=== PATIENT | female | born 1945 | race Caucasian/White ===

== ENCOUNTER 2023-02-21 17:33 | Inpatient (IN) | payer MEDICARE, MEDICAID ==
[~2023-02-21] VITALS: Ht 170.2 cm; Wt 68.2 kg
[~2023-02-21 17:33] MED LIST: AMLO2.5T45 PO; AMLO5TAB4 PO; ASPI-1406 PO; ASPI-867 PO; CARI350T28; CEPH-568; CEPH-569 PO; CEPH500T PO; ESOM40SU PO; FURO40SO PO; HYDR-4009 PO; HYDR25TA PO; LISI-186; LISI20TA31 PO; LISI40TA13 PO; METO-539 PO; PROC-1 PO
[2023-02-21] MEDS ORDERED: VANCOMYCIN 1G PREMIX 200 ML IV ONE (18:45)
[2023-02-21] MEDS ORDERED: SODIUM CHLORIDE 0.9% 1000ML BAG (SEPSIS BOLUS) IV ONE (18:45)
[2023-02-21 19:10] LABS: BASOPHILS % 0.6 % (0.0-2.0); HEMATOCRIT. 35.6 % (36.0-48.0); HEMOGLOBIN. 11.5 g/dL (12.0-16.0); LYMPHOCYTES % 12.8 % (20.0-50.0); MEAN CORPUSCULAR HEMOGLOBIN 29.9 pg (28.0-32.0); MEAN CORPUSCULAR VOLUME 92.7 fL (81.0-99.0); MEAN PLATELET VOLUME 8.7 fl (7.4-10.4); MONOCYTES % 8.5 % (2.0-8.0); NEUTROPHILS % 77.1 % (40.0-76.0); PLATELET 262 x1000/uL (130-400); RED BLOOD CELL COUNT 3.84 mill/uL (4.2-5.4); RED CELL DISTRIBUTION WIDTH 17.7 % (11.6-14.6)
[2023-02-21 19:11] LABS: CHLORIDE 110 mEq/L (98-107)
[2023-02-21 19:33] LABS: INR 0.9; PROTHROMBIN TIME 10.1 sec (9.6-11.0)
[2023-02-21] MEDS ORDERED: ONDANSETRON HCL 4MG/2ML INJ IV ONE (20:00)
[2023-02-21] MEDS ORDERED: MORPHINE SULFATE 2 MG/ML CPJ (NOT FOR IM USE) IV ONE ×2 (20:00→22:30)
[2023-02-21 20:05] LABS: CLARITY URINE CLEAR (CLEAR); COLOR URINE YELLOW (YELLOW); KETONES URINE NEGATIVE (NEGATIVE); LEUKOCYTE ESTERASE URINE NEGATIVE (NEGATIVE); NITRITE URINE NEGATIVE (NEGATIVE); OCCULT BLOOD URINE NEGATIVE (NEGATIVE); PROTEIN URINE 3+ (NEGATIVE); SPECIFIC GRAVITY URINE 1.014 (1.005-1.030); UROBILINOGEN URINE 0.2 E.U./dL (0.2-1.0)
[2023-02-21] MEDS ORDERED: MORPHINE SULFATE 2 MG/ML CPJ (NOT FOR IM USE) IV PRN (21:45)
[2023-02-21] MEDS ORDERED: ONDANSETRON HCL 4MG/2ML INJ IV PRN (21:45)
[2023-02-21] MEDS ORDERED: ACETAMINOPHEN 650MG SUPP PR PRN ×2 (21:45)
[2023-02-21] MEDS ORDERED: CLONIDINE 0.1MG TABLET PO PRN (21:45)
[2023-02-21] MEDS ORDERED: FUROSEMIDE 40MG/4ML VIAL IV ONE (21:45)
[2023-02-21] MEDS ORDERED: HYDROCODONE/ACETAMINOPHEN 5/325MG TABLET PO PRN (21:45)
[2023-02-21] MEDS ORDERED: IPRATROPIUM/ALBUTEROL 0.5-3(2.5)MG/3ML NEB HHN PRN (21:45)
[2023-02-21] MEDS ORDERED: DEXTROSE 50% WATER 50ML SYRINGE IV PRN (23:15)
[2023-02-21] MEDS ORDERED: FUROSEMIDE 40MG/4ML VIAL IV NR (23:45)
[2023-02-22 00:19] LABS: *AMPHETAMINES SCREEN URINE NEGATIVE (NEGATIVE); *BARBITURATES SCREEN URINE NEGATIVE (NEGATIVE); *BENZODIAZEPINES SCREEN URINE NEGATIVE (NEGATIVE); *COCAINE SCREEN URINE NEGATIVE (NEGATIVE); CANNABINOID URINE SCREEN NEGATIVE (NEGATIVE); METHADONE URINE SCREEN NEGATIVE (NEGATIVE); OPIATES URINE SCREEN PRESUMTIVE POSITIVE (NEGATIVE); PHENCYCLIDINE URINE SCREEN NEGATIVE (NEGATIVE)
[2023-02-22 00:22] LABS: D-DIMER 1.12 mg/L FEU (<0.50); PROTHROMBIN TIME 10.3 sec (9.6-11.0)
[2023-02-22 00:43] LABS: FERRITIN 23 ng/mL (10-291)
[2023-02-22] MEDS ORDERED: KETOROLAC 15MG/ML VIAL IV NR (00:45)
[2023-02-22 00:46] LABS: VITAMIN B12 SERUM 974 pg/mL (211-911)
[2023-02-22] MEDS ORDERED: DEXTROSE 50% WATER 50ML SYRINGE IV PRN (02:30)
[2023-02-22] MEDS: INSULIN LISPRO 100 UNITS/ML SUBCUT SCH ×8 (02:30→21:25)
[2023-02-22] MEDS ORDERED: HYDROMORPHONE HCL/PF 2MG/ML CPJ IV NR (03:15)
[2023-02-22 05:14] LABS: BASOPHILS % 0.6 % (0.0-2.0); EOSINOPHILS % 0.4 % (0.0-5.0); HEMATOCRIT. 29.6 % (36.0-48.0); HEMOGLOBIN. 9.7 g/dL (12.0-16.0); LYMPHOCYTES % 16.5 % (20.0-50.0); MEAN CORPUSCULAR VOLUME 91.6 fL (81.0-99.0); MONOCYTES % 11.9 % (2.0-8.0); NEUTROPHILS % 70.6 % (40.0-76.0); PLATELET 208 x1000/uL (130-400); RED BLOOD CELL COUNT 3.24 mill/uL (4.2-5.4); RED CELL DISTRIBUTION WIDTH 17.6 % (11.6-14.6)
[2023-02-22 05:35] LABS: CHLORIDE 114 mEq/L (98-107)
[2023-02-22 06:03] LABS: HDL CHOLESTEROL 70 mg/dL (40-59); LDL CHOLESTEROL 38 mg/dL (5-100); T4 FREE 0.99 ng/dL (0.76-1.46)
[2023-02-22] MEDS: BLOOD SUGAR DIAGNOSTIC STRIP TEST SCH ×8 (06:30→21:25)
[2023-02-22] MEDS ORDERED: HYDRALAZINE 20MG/ML VIAL IV PRN (08:15)
[2023-02-22] MEDS ORDERED: PANTOPRAZOLE SODIUM 40 MG/VIAL IV SCH (09:00)
[2023-02-22] MEDS: LORAZEPAM 2MG/ML CPJ IV PRN ×3 (09:27→21:33)
[2023-02-22 10:30] VITALS: BP 147/69
[2023-02-22] MEDS: ASPIRIN 81MG EC TABLET PO SCH (11:27)
[2023-02-22 11:29] VITALS: BP 152/71
[2023-02-22] MEDS: METOPROLOL TARTRATE 25MG TABLET PO SCH ×2 (11:29→19:02)
[2023-02-22] MEDS: AMLODIPINE 5MG TABLET PO SCH (11:30)
[2023-02-22 12:23] VITALS: BP 147/69
[2023-02-22] MEDS ORDERED: MORPHINE SULFATE 2 MG/ML CPJ (NOT FOR IM USE) IV NR (13:45)
[2023-02-22] MEDS ORDERED: FUROSEMIDE 40MG/4ML VIAL IVP NR (13:45)
[2023-02-22] MEDS: ENOXAPARIN 40MG/0.4ML SYR SUBCUT SCH (14:12)
[2023-02-22 16:00] VITALS: BP 138/91
[2023-02-22] MEDS ORDERED: NALOXONE HCL 0.4MG/ML VIAL IV PRN (17:30)
[2023-02-22] MEDS ORDERED: VANCOMYCIN 750MG PREMIX 150 ML IV SCH (18:00)
[2023-02-22] MEDS: HYDROMORPHONE HCL/PF 2MG/ML CPJ IV PRN (19:04)
[2023-02-22 20:00] VITALS: BP 161/97
[2023-02-22] MEDS: INSULIN GLARGINE 100 UNITS/ML SUBCUT SCH (21:56)
[2023-02-23] VITALS: BP 139/71
[2023-02-23 04:00] VITALS: BP 166/72
[2023-02-23] MEDS: BLOOD SUGAR DIAGNOSTIC STRIP TEST SCH ×8 (06:49→20:07)
[2023-02-23] MEDS: INSULIN LISPRO 100 UNITS/ML SUBCUT SCH ×7 (07:10→20:25)
[2023-02-23] MEDS ORDERED: LIDOCAINE HCL 1% 10 MG/ML 10ML VIAL ONE (07:14)
[2023-02-23 07:50] VITALS: BP 131/69
[2023-02-23] MEDS: LORAZEPAM 2MG/ML CPJ IV PRN (08:27)
[2023-02-23] MEDS: METOPROLOL TARTRATE 25MG TABLET PO SCH ×2 (08:28→18:16)
[2023-02-23] MEDS: FUROSEMIDE 40MG/4ML VIAL IVP SCH (08:28)
[2023-02-23] MEDS: ASPIRIN 81MG EC TABLET PO SCH (08:28)
[2023-02-23] MEDS: AMLODIPINE 5MG TABLET PO SCH (08:29)
[2023-02-23] MEDS: FAMOTIDINE 20MG/2ML VIAL IV SCH (08:47)
[2023-02-23 12:00] VITALS: BP 154/83
[2023-02-23] MEDS: ENOXAPARIN 40MG/0.4ML SYR SUBCUT SCH (13:17)
[2023-02-23 16:00] VITALS: BP 145/77
[2023-02-23] MEDS ORDERED: VANCOMYCIN 1G PREMIX 200 ML IV SCH (17:00)
[2023-02-23] MEDS: DEXT 5%/0.9% NACL 1,000 ML IV SCH (17:08)
[2023-02-23 17:20] LABS: BASOPHILS % 0.5 % (0.0-2.0); EOSINOPHILS % 0.7 % (0.0-5.0); HEMATOCRIT. 33.8 % (36.0-48.0); HEMOGLOBIN. 11.3 g/dL (12.0-16.0); LYMPHOCYTES % 18.1 % (20.0-50.0); MEAN CORPUSCULAR HEMOGLOBIN 30.4 pg (28.0-32.0); MEAN CORPUSCULAR VOLUME 90.8 fL (81.0-99.0); MEAN PLATELET VOLUME 7.6 fl (7.4-10.4); MONOCYTES % 12.5 % (2.0-8.0); NEUTROPHILS % 68.2 % (40.0-76.0); PLATELET 247 x1000/uL (130-400); RED BLOOD CELL COUNT 3.72 mill/uL (4.2-5.4); RED CELL DISTRIBUTION WIDTH 17.7 % (11.6-14.6)
[2023-02-23] MEDS: THIAMINE HCL 100MG TABLET PO SCH (18:16)
[2023-02-23] MEDS: HYDROMORPHONE HCL/PF 2MG/ML CPJ IV PRN (18:51)
[2023-02-23] MEDS ORDERED: MAGNESIUM 2 G PREMIX 50 ML IV NR (19:00)
[2023-02-23 20:00] VITALS: BP 148/60
[2023-02-23] MEDS ORDERED: *PATIENT'S OWN MEDICATION STORAGE XX SCH (22:45)
[2023-02-23] MEDS: INSULIN GLARGINE 100 UNITS/ML SUBCUT SCH (23:58)
[2023-02-24] VITALS: BP 138/66
[2023-02-24] MEDS: HYDROCODONE/ACETAMINOPHEN 10/325MG TABLET PO PRN ×2 (00:03→11:56)
[2023-02-24 04:00] VITALS: BP 146/70
[2023-02-24] MEDS: HYDROMORPHONE HCL/PF 2MG/ML CPJ IV PRN ×2 (05:00→13:53)
[2023-02-24] MEDS: DEXT 5%/0.9% NACL 1,000 ML IV SCH (05:05)
[2023-02-24] MEDS: BLOOD SUGAR DIAGNOSTIC STRIP TEST SCH (05:54)
[2023-02-24] MEDS: INSULIN LISPRO 100 UNITS/ML SUBCUT SCH ×2 (06:17→13:36)
[2023-02-24 07:43] LABS: BASOPHILS % 0.3 % (0.0-2.0); HEMATOCRIT. 33.1 % (36.0-48.0); HEMOGLOBIN. 11.1 g/dL (12.0-16.0); LYMPHOCYTES % 27.5 % (20.0-50.0); MEAN CORPUSCULAR HEMOGLOBIN 30.5 pg (28.0-32.0); MEAN CORPUSCULAR VOLUME 90.7 fL (81.0-99.0); MEAN PLATELET VOLUME 8.2 fl (7.4-10.4); MONOCYTES % 12.5 % (2.0-8.0); NEUTROPHILS % 56.7 % (40.0-76.0); PLATELET 234 x1000/uL (130-400); RED BLOOD CELL COUNT 3.64 mill/uL (4.2-5.4); RED CELL DISTRIBUTION WIDTH 18.1 % (11.6-14.6)
[2023-02-24 07:48] LABS: PHOSPHORUS 3.4 mg/dL (2.5-4.9)
[2023-02-24 08:00] VITALS: BP 127/81
[2023-02-24] MEDS: ASPIRIN 81MG EC TABLET PO SCH (08:56)
[2023-02-24] MEDS: AMLODIPINE 5MG TABLET PO SCH ×2 (08:56→09:00)
[2023-02-24] MEDS: THIAMINE HCL 100MG TABLET PO SCH (08:56)
[2023-02-24] MEDS: FUROSEMIDE 40MG/4ML VIAL IVP SCH ×2 (08:57→09:00)
[2023-02-24] MEDS: METOPROLOL TARTRATE 25MG TABLET PO SCH (08:57)
[2023-02-24] MEDS: FAMOTIDINE 20MG/2ML VIAL IV SCH ×2 (08:57→09:00)
[2023-02-24] MEDS ORDERED: METO25TA6 PO (10:42)
[2023-02-24] MEDS ORDERED: FURO80TA87 PO (10:42)
[2023-02-24 12:00] VITALS: BP 106/55
[2023-02-24 13:24] VITALS: BP 106/55
[2023-02-24 13:53] VITALS: BP 106/55
== END 2023-02-24 14:05 | disposition home health service (06) | DRG 91 ==
LOC: ER 17:45 → MICUSO 21:39 → EDBEDREQ 21:51 → EDBEDREQTM 21:51 → 8WST 02-22 10:05
PROVIDERS: ADMIT Internal Medicine; ATTEND Internal Medicine
PROC: 4A00X4Z Measurement of Central Nervous Electrical Activity, External Approach (ICD-10-PCS; principal; 2023-02-23)
PROC: 02HV33Z Insertion of Infusion Device into Superior Vena Cava, Percutaneous Approach (ICD-10-PCS; 2023-02-23)
PROC: B548ZZA Ultrasonography of Superior Vena Cava, Guidance (ICD-10-PCS; 2023-02-23)
DX: G92.8 Other toxic encephalopathy (principal); I21.A1 Myocardial infarction type 2; I50.31 Acute diastolic (congestive) heart failure; F02.83 Dementia in other diseases classified elsewhere, unspecified severity, with mood disturbance; N17.9 Acute kidney failure, unspecified; R47.01 Aphasia; I11.0 Hypertensive heart disease with heart failure; K43.9 Ventral hernia without obstruction or gangrene; F32.A Depression, unspecified; D63.8 Anemia in other chronic diseases classified elsewhere; G30.9 Alzheimer's disease, unspecified; K46.9 Unspecified abdominal hernia without obstruction or gangrene; I25.10 Atherosclerotic heart disease of native coronary artery without angina pectoris; I44.7 Left bundle-branch block, unspecified; K21.9 Gastro-esophageal reflux disease without esophagitis; E11.9 Type 2 diabetes mellitus without complications; M06.9 Rheumatoid arthritis, unspecified; M19.90 Unspecified osteoarthritis, unspecified site; Z79.4 Long term (current) use of insulin; Z79.82 Long term (current) use of aspirin; Z79.899 Other long term (current) drug therapy; Z86.73 Personal history of transient ischemic attack (TIA), and cerebral infarction without residual deficits; Z87.891 Personal history of nicotine dependence; Z88.0 Allergy status to penicillin; Z91.041 Radiographic dye allergy status; Z91.81 History of falling; Z88.2 Allergy status to sulfonamides; Z88.8 Allergy status to other drugs, medicaments and biological substances
CPT/HCPCS: 36415; 36573; 71045; 74176; 80048; 80053; 80061; 80202; 80305; 81003; 82607; 82728; 82746; 82962; 83036; 83540; 83550; 83605; 83735; 83880; 84100; 84145; 84439; 84443; 84481; 84484; 85025; 85379; 86850; 86900; 92610; 93005; 93306; 93970; 95816; 97162; 99285; A6261; C1725; C1893; C9113; J0360; J1170; J1650; J1815; J1885; J1940; J2060; J2270; J2405; J3370; J3475; J3490; J7030; J7042; A4315

== ENCOUNTER 2024-02-08 21:49 | Inpatient (IN) | payer MEDICARE, MEDICAID ==
[~2024-02-08] VITALS: Ht 147.3 cm; Wt 72.1 kg
[~2024-02-08 21:49] MED LIST changes: -AMLO2.5T45 PO; -ASPI-867 PO; -CARI350T28; -CEPH-568; -CEPH-569 PO; -CEPH500T PO; -FURO40SO PO; +FURO80TA87 PO; -LISI-186; -LISI20TA31 PO; -METO-539 PO; +METO25TA6 PO; -PROC-1 PO
[2024-02-08 22:50] LABS: BASOPHILS % 0.8 % (0.0-2.0); EOSINOPHILS % 5.4 % (0.0-5.0); HEMATOCRIT. 27.4 % (36.0-48.0); HEMOGLOBIN. 8.9 g/dL (12.0-16.0); LYMPHOCYTES % 19.9 % (20.0-50.0); MEAN CORPUSCULAR HEMOGLOBIN 30.3 pg (28.0-32.0); MEAN CORPUSCULAR HGB CONC 32.6 g/dL (31.0-37.0); MEAN CORPUSCULAR VOLUME 92.9 fL (81.0-99.0); MEAN PLATELET VOLUME 6.9 fl (7.4-10.4); MONOCYTES % 11.5 % (2.0-8.0); NEUTROPHILS % 62.4 % (40.0-76.0); PLATELET 275 x1000/uL (130-400); RED BLOOD CELL COUNT 2.95 mill/uL (4.2-5.4); RED CELL DISTRIBUTION WIDTH 17.4 % (11.6-14.6); WHITE BLOOD COUNT 4.8 x1000/uL (4.5-11.0)
[2024-02-08 23:01] LABS: INR 0.9; PARTIAL THROMBOPLASTIN TIME 28.3 sec (23.4-31.0); PROTHROMBIN TIME 10.5 sec (9.6-11.0)
[2024-02-08 23:02] LABS: CHLORIDE 106 mEq/L (98-107); POTASSIUM 5.4 mEq/L (3.5-5.1); SODIUM 137 mEq/L (136-145)
[2024-02-08 23:03] LABS: CARBON DIOXIDE 24 mEq/L (21-32)
[2024-02-08 23:08] LABS: CREATININE 2.8 mg/dL (0.6-1.0); GLUCOSE 270 mg/dL (70-105); UREA NITROGEN BLOOD 42 mg/dL (9-23)
[2024-02-08 23:09] LABS: TROPONIN I HIGH SENSITIVITY 18 ng/L (3.0-34)
[2024-02-09] VITALS (7 sets, daily range): BP systolic 123–149; BP diastolic 51–65; PULSE 71–81; RESP 18–20; TEMP 96.6–98.2; O2SAT 96
[2024-02-09] MEDS: HYDROCODONE/ACETAMINOPHEN 10/325MG TABLET PO ONE
[2024-02-09 00:46] LABS: TROPONIN I HIGH SENSITIVITY 15 ng/L (3.0-34)
[2024-02-09] MEDS: DEXTROSE 50% WATER 50ML SYRINGE IV ONE (02:30)
[2024-02-09] MEDS: INSULIN REGULAR (HUMULIN R) 300UNITS/3ML VIAL IV ONE (02:30)
[2024-02-09] MEDS: DEXTROSE 50% WATER 50ML SYRINGE IV NR (04:30)
[2024-02-09] MEDS ORDERED: INSULIN REGULAR (HUMULIN R) 300UNITS/3ML VIAL IV NR (04:30)
[2024-02-09] MEDS: CALCIUM GLUCONATE 1GM PREMIX 50 ML IV ONE (04:56)
[2024-02-09] MEDS: FUROSEMIDE 40MG/4ML VIAL IVP ONE (04:56)
[2024-02-09] MEDS: FUROSEMIDE 40MG/4ML VIAL IVP NR (04:58)
[2024-02-09] MEDS ORDERED: ONDANSETRON HCL 4MG/2ML INJ IV PRN (05:15)
[2024-02-09] MEDS ORDERED: MAGNESIUM/ALUMINUM HYDROXIDE/SIMETHICONE 30ML UDC PO PRN (05:15)
[2024-02-09] MEDS ORDERED: DOCUSATE SODIUM 100MG CAPSULE PO PRN (05:15)
[2024-02-09] MEDS ORDERED: CLONIDINE 0.1MG TABLET PO PRN (05:15)
[2024-02-09] MEDS ORDERED: IPRATROPIUM/ALBUTEROL 0.5-3(2.5)MG/3ML NEB HHN PRN ×2 (05:15)
[2024-02-09] MEDS ORDERED: DEXTROSE 50% WATER 50ML SYRINGE IV PRN (05:30)
[2024-02-09 06:32] LABS: POTASSIUM 5.3 mEq/L (3.5-5.1)
[2024-02-09 06:33] LABS: CALCIUM 9.5 mg/dL (8.7-10.4)
[2024-02-09 06:36] LABS: PHOSPHORUS 3.8 mg/dL (2.5-4.9); TROPONIN I HIGH SENSITIVITY 12 ng/L (3.0-34)
[2024-02-09 06:38] LABS: CREATINE KINASE 44 IU/L (34-145); CREATININE 2.6 mg/dL (0.6-1.0)
[2024-02-09 06:40] LABS: T4 FREE 1.2 ng/dL (0.89-1.76)
[2024-02-09 06:41] LABS: THYROID STIMULATING HORMONE 1.75 uIU/mL (0.55-4.78)
[2024-02-09] MEDS: INSULIN LISPRO 100 UNITS/ML SUBCUT SCH (07:28)
[2024-02-09 08:22] LABS: IRON 44 ug/dL (50-170)
[2024-02-09] MEDS: BLOOD SUGAR DIAGNOSTIC STRIP TEST SCH (08:24)
[2024-02-09 08:25] LABS: TOTAL IRON BINDING CAPACITY 313 ug/dl (250-425)
[2024-02-09] MEDS: GUAIFENESIN 600MG ER TABLET PO SCH (08:54)
[2024-02-09] MEDS: PANTOPRAZOLE SODIUM 40 MG/VIAL IV SCH (08:54)
[2024-02-09] MEDS: FUROSEMIDE 40MG/4ML VIAL IV SCH (08:54)
[2024-02-09 09:02] LABS: BG BASE EXCESS -3.1 mmol/L (-2.0-2.0); BG DEOXYHEMOGLOBIN 1.4 % (0.0-5.0); BG FRACTION INSPIRED OXYGEN 40; BG HCO3 ACT 22.9 mmol/L (22.0-26.0); BG METHEMOGLOBIN 0.1 % (0.0-1.5); BG OXYGEN SATURATION 98.6 % (92.0-98.5); BG OXYHEMOGLOBIN 97.5 % (94.0-97.0); BG PCO2 45.2 mmHg (35.0-45.0); BG PH 7.322 (7.350-7.450); BG PO2 111.4 mmHg (75.0-100.0); BG SAMPLE SITE LEFT RADIAL; BG TOTAL HEMOGLOBIN 9.1 g/dL (12.0-18.0); BG VENT MODE NASAL CANNULA
[2024-02-09 10:59] LABS: CLARITY URINE CLEAR (CLEAR); COLOR URINE YELLOW (YELLOW); GLUCOSE URINE NEGATIVE (NEGATIVE); KETONES URINE NEGATIVE (NEGATIVE); LEUKOCYTE ESTERASE URINE NEGATIVE (NEGATIVE); NITRITE URINE NEGATIVE (NEGATIVE); OCCULT BLOOD URINE NEGATIVE (NEGATIVE); PH URINE 5.5 (4.5-8.0); PROTEIN URINE 3+ (NEGATIVE); UROBILINOGEN URINE 0.2 E.U./dL (0.2-1.0)
[2024-02-09] MEDS: KETOROLAC 10MG TABLET PO PRN (11:07)
[2024-02-09 11:11] LABS: RBC URINE 0-2 /hpf (0-2); SQUAMOUS EPITHELIAL CELL URINE RARE /lpf (RARE/1+); WBC URINE 0-2 /hpf (0-2)
[2024-02-09 11:12] LABS: BACTERIA URINE NONE SEEN; YEAST URINE NONE SEEN
[2024-02-09 11:49] LABS: *AMPHETAMINES SCREEN URINE NEGATIVE (NEGATIVE); *BARBITURATES SCREEN URINE NEGATIVE (NEGATIVE); *BENZODIAZEPINES SCREEN URINE NEGATIVE (NEGATIVE); *COCAINE SCREEN URINE NEGATIVE (NEGATIVE); CANNABINOID URINE SCREEN NEGATIVE (NEGATIVE); ECSTASY MDMA SCREEN URINE NEGATIVE (NEGATIVE); METHADONE URINE SCREEN NEGATIVE (NEGATIVE); OPIATES URINE SCREEN PRESUMPTIVE POSITIVE (NEGATIVE); PHENCYCLIDINE URINE SCREEN NEGATIVE (NEGATIVE)
[2024-02-09] MEDS: SODIUM POLYSTYRENE SULFONATE 15 G/60 ML BOT PO NR (14:29)
[2024-02-09] MEDS: IPRATROPIUM/ALBUTEROL 0.5-3(2.5)MG/3ML NEB HHN SCH (14:30)
[2024-02-09 15:18] LABS: FERRITIN 27 ng/mL (10-291); FOLIC ACID (FOLATE) SERUM 9.51 ng/mL (>5.38)
[2024-02-09 15:19] LABS: VITAMIN B12 SERUM 925 pg/mL (211-911)
[2024-02-09 15:40] LABS: CREATINE KINASE 63 IU/L (34-145); TROPONIN I HIGH SENSITIVITY 21 ng/L (3.0-34)
[2024-02-09] MEDS: ACETAMINOPHEN 325MG TABLET PO PRN (15:41)
[2024-02-09] MEDS: HYDROCODONE/ACETAMINOPHEN 10/325MG TABLET PO NR (18:27)
[2024-02-09] MEDS: METOPROLOL TARTRATE 25MG TABLET PO SCH (21:00)
[2024-02-10] VITALS (10 sets, daily range): BP systolic 101–157; BP diastolic 60–66; PULSE 65–159; RESP 16–20; TEMP 97.5–98.4; O2SAT 98
[2024-02-10 07:14] LABS: POTASSIUM 4.1 mEq/L (3.5-5.1)
[2024-02-10 07:15] LABS: CALCIUM 8.9 mg/dL (8.7-10.4)
[2024-02-10 07:20] LABS: CREATININE 2.6 mg/dL (0.6-1.0)
[2024-02-10 07:25] LABS: BASOPHILS % 0.6 % (0.0-2.0); EOSINOPHILS % 4.8 % (0.0-5.0); HEMATOCRIT. 23.3 % (36.0-48.0); HEMOGLOBIN. 7.7 g/dL (12.0-16.0); LYMPHOCYTES % 15.5 % (20.0-50.0); MEAN CORPUSCULAR HEMOGLOBIN 30.6 pg (28.0-32.0); MEAN CORPUSCULAR HGB CONC 33.2 g/dL (31.0-37.0); MEAN CORPUSCULAR VOLUME 92.3 fL (81.0-99.0); MEAN PLATELET VOLUME 7.1 fl (7.4-10.4); MONOCYTES % 11.8 % (2.0-8.0); NEUTROPHILS % 67.3 % (40.0-76.0); PLATELET 241 x1000/uL (130-400); RED BLOOD CELL COUNT 2.53 mill/uL (4.2-5.4); RED CELL DISTRIBUTION WIDTH 17.2 % (11.6-14.6); WHITE BLOOD COUNT 5.3 x1000/uL (4.5-11.0)
[2024-02-10] MEDS: ASPIRIN 81MG TABLET PO SCH (08:40)
[2024-02-10] MEDS: HYDROCODONE/ACETAMINOPHEN 10/325MG TABLET PO PRN (08:41)
[2024-02-10] MEDS: HYDROCHLOROTHIAZIDE 25MG TABLET PO SCH (08:41)
[2024-02-10] MEDS: AMLODIPINE 5MG TABLET PO SCH (08:42)
[2024-02-10] MEDS: FUROSEMIDE 100MG/10ML VIAL IV SCH (09:00)
[2024-02-10] MEDS ORDERED: NALOXONE HCL 0.4MG/ML VIAL IV PRN (16:00)
[2024-02-10] MEDS: EPOETIN ALFA 4000UNITS/ML VIAL SUBCUT NR (21:54)
[2024-02-11] VITALS (10 sets, daily range): BP systolic 128–158; BP diastolic 58–67; PULSE 70–91; RESP 15–20; TEMP 97.4–98.1; O2SAT 94–97
[2024-02-11] MEDS ORDERED: LIDOCAINE HCL 1% 10 MG/ML 10ML VIAL ONE (08:45)
[2024-02-11] MEDS: FERROUS SULFATE 325MG TABLET PO SCH (08:49)
[2024-02-11 12:45] LABS: POTASSIUM 3.6 mEq/L (3.5-5.1)
[2024-02-11 12:47] LABS: CALCIUM 8.6 mg/dL (8.7-10.4)
[2024-02-11 12:51] LABS: CREATININE 2.4 mg/dL (0.6-1.0)
[2024-02-11 12:53] LABS: BASOPHILS % 0.5 % (0.0-2.0); EOSINOPHILS % 1.8 % (0.0-5.0); HEMATOCRIT. 27.1 % (36.0-48.0); HEMOGLOBIN. 8.7 g/dL (12.0-16.0); LYMPHOCYTES % 8.9 % (20.0-50.0); MEAN CORPUSCULAR HEMOGLOBIN 30.4 pg (28.0-32.0); MEAN CORPUSCULAR VOLUME 94.8 fL (81.0-99.0); MEAN PLATELET VOLUME 7.1 fl (7.4-10.4); MONOCYTES % 8.6 % (2.0-8.0); NEUTROPHILS % 80.2 % (40.0-76.0); PLATELET 246 x1000/uL (130-400); RED BLOOD CELL COUNT 2.86 mill/uL (4.2-5.4); RED CELL DISTRIBUTION WIDTH 17.9 % (11.6-14.6); WHITE BLOOD COUNT 6.2 x1000/uL (4.5-11.0)
[2024-02-11] MEDS: HYDRALAZINE HCL 10MG TABLET PO SCH (13:02)
[2024-02-12] VITALS (11 sets, daily range): BP systolic 126–154; BP diastolic 44–70; PULSE 67–98; RESP 18–20; TEMP 97.6–98; O2SAT 95–98
[2024-02-12 07:42] LABS: POTASSIUM 3.7 mEq/L (3.5-5.1)
[2024-02-12 07:43] LABS: CALCIUM 8.8 mg/dL (8.7-10.4)
[2024-02-12 07:49] LABS: CREATININE 2.5 mg/dL (0.6-1.0)
[2024-02-12 07:55] LABS: BASOPHILS % 0.9 % (0.0-2.0); HEMATOCRIT. 24.8 % (36.0-48.0); HEMOGLOBIN. 8.3 g/dL (12.0-16.0); LYMPHOCYTES % 26.3 % (20.0-50.0); MEAN CORPUSCULAR HEMOGLOBIN 30.2 pg (28.0-32.0); MEAN CORPUSCULAR HGB CONC 33.5 g/dL (31.0-37.0); MEAN CORPUSCULAR VOLUME 90.1 fL (81.0-99.0); MEAN PLATELET VOLUME 7.4 fl (7.4-10.4); NEUTROPHILS % 54.8 % (40.0-76.0); PLATELET 270 x1000/uL (130-400); RED BLOOD CELL COUNT 2.75 mill/uL (4.2-5.4); RED CELL DISTRIBUTION WIDTH 17.1 % (11.6-14.6); WHITE BLOOD COUNT 6.4 x1000/uL (4.5-11.0)
[2024-02-12] MEDS: FUROSEMIDE 40MG TABLET PO SCH (09:04)
[2024-02-12] MEDS ORDERED: FERR-63 PO (15:35)
[2024-02-12] MEDS ORDERED: FURO40TA5 PO (15:35)
[2024-02-12] MEDS ORDERED: FLUT9.9S BOTHNSTRLS (15:35)
[2024-02-12] MEDS ORDERED: BENZ100C86 MT (15:35)
[2024-02-12] MEDS ORDERED: CLAR250T12 MT (15:35)
[2024-02-12] MEDS ORDERED: MONT5TAB79 MT (15:35)
[2024-02-12] MEDS ORDERED: HYDR-2988 PO (15:35)
[2024-02-12] MEDS: MONTELUKAST SODIUM 10MG TABLET PO SCH (18:38)
[2024-02-12] MEDS ORDERED: LORATADINE 10MG TABLET PO SCH (21:00)
[2024-02-12] MEDS ORDERED: FLUTICASONE PROPIONATE 50MCG/SPRAY BOTTLE BOTHNSTRLS SCH (21:00)
[2024-02-12] MEDS: GUAIFENESIN 200MG/10ML SUGAR FREE UDC PO PRN (23:11)
[2024-02-13] MEDS ORDERED: FUROSEMIDE 40MG TABLET PO SCH (09:00)
== END 2024-02-12 23:18 | disposition home health service (06) | DRG 291 ==
LOC: ER 21:49 → 7EST 02-09 02:55 → EDBEDREQTM 02-09 03:04 → EDBEDREQ 02-09 03:04
PROVIDERS: ADMIT Internal Medicine; ATTEND Internal Medicine
PROC: 05HY33Z Insertion of Infusion Device into Upper Vein, Percutaneous Approach (ICD-10-PCS; principal; 2024-02-11)
PROC: B54MZZA Ultrasonography of Right Upper Extremity Veins, Guidance (ICD-10-PCS; 2024-02-11)
DX: I13.0 Hypertensive heart and chronic kidney disease with heart failure and stage 1 through stage 4 chronic kidney disease, or unspecified chronic kidney disease (principal); I50.43 Acute on chronic combined systolic (congestive) and diastolic (congestive) heart failure; J96.01 Acute respiratory failure with hypoxia; J84.9 Interstitial pulmonary disease, unspecified; N17.9 Acute kidney failure, unspecified; E87.29 Other acidosis; E87.5 Hyperkalemia; K21.9 Gastro-esophageal reflux disease without esophagitis; E11.22 Type 2 diabetes mellitus with diabetic chronic kidney disease; D50.9 Iron deficiency anemia, unspecified; G89.29 Other chronic pain; N18.32 Chronic kidney disease, stage 3b; I25.10 Atherosclerotic heart disease of native coronary artery without angina pectoris; M54.9 Dorsalgia, unspecified; M79.606 Pain in leg, unspecified; E11.649 Type 2 diabetes mellitus with hypoglycemia without coma; I45.9 Conduction disorder, unspecified; Z79.4 Long term (current) use of insulin; J31.0 Chronic rhinitis; Z20.822 Contact with and (suspected) exposure to COVID-19; R29.6 Repeated falls; Z86.73 Personal history of transient ischemic attack (TIA), and cerebral infarction without residual deficits; Z88.0 Allergy status to penicillin; Z88.2 Allergy status to sulfonamides; Z87.891 Personal history of nicotine dependence; Z79.899 Other long term (current) drug therapy; Z91.81 History of falling
CPT/HCPCS: 36415; 36573; 36600; 71045; 71250; 76770; 80048; 80061; 80305; 81003; 82375; 82550; 82607; 82728; 82746; 82805; 82962; 83036; 83540; 83550; 83605; 83735; 83880; 84100; 84145; 84439; 84443; 84484; 85025; 87070; 87426; 93005; 93306; 93970; 94640; 97162; 99291; C1725; C1893; C9113; J0610; J0885; J1815; J1940; J3490